=== PATIENT | male | born 1995 | race Caucasian/White ===

== ENCOUNTER 2016-11-09 10:35 | Emergency (ER) | payer OTHER ==
--- NOTE | 2016-11-09 10:57 | EDM.PDOC ---
ED HPI Trauma - General Chief Complaint: Lower Extremity Injury/Pain Stated Complaint: RIGHT ANKLE PAIN Time Seen by Provider: 11/09/16 10:39 Source: Reports: Patient History Limitations: Reports: No limitations - History of Present Illness INITIAL COMMENTS - FREE TEXT/NARRATIVE: History of present illness: [] Patient got stuck in the snow yesterday and jumped out of the bed of his pickup and landed improperly with his right ankle rolling. He took some ibuprofen has been icing it and is concerned that he may have sprained his ankle. He does not want an x-ray of his ankle. Review of systems: As per history of present illness and below otherwise all systems reviewed and negative. Past medical history: As per history of present illness and as reviewed below otherwise noncontributory. Surgical history: As per history of present illness and as reviewed below otherwise noncontributory. Social history: No reported history of drug or alcohol abuse. Family history: As per history of present illness and as reviewed below otherwise noncontributory. Physical exam: General: Well developed, well nourished in NAD HEENT: Atraumatic, normocephalic, pupils reactive, negative for conjunctival pallor or scleral icterus, mucous membranes moist, throat clear, neck supple, nontender, trachea midline. Lungs: Clear to auscultation, breath sounds equal bilaterally, chest nontender. Heart: S1S2, regular, negative for clicks, rubs, or JVD. Abdomen: Soft, nondistended, nontender. Negative for masses or hepatosplenomegaly. Negative for costovertebral tenderness. Pelvis: Stable nontender. Genitourinary: Deferred. Rectal: Deferred. Extremities: Atraumatic, negative for cords or calf pain. Neurovascular unremarkable. Neuro: Awake, alert, oriented. Cranial nerves II through XII unremarkable. Cerebellum unremarkable. Motor and sensory unremarkable throughout. Exam nonfocal. Diagnostics: [] Therapeutics: [] Ibuprofen every 6 hours ice elevation ankle stirrup Impression: [] Right ankle sprain Plan: [] Ice elevate Motrin for pain or ankle stirrup for support return if symptoms worsen followup with with orthopedics Definitive disposition and diagnosis as appropriate pending reevaluation and review of above. Allergies/ADRs: Allergies No Known Allergies Allergy (Verified 11/09/16 10:57) Home Medications: Ambulatory Orders . [No Known Home Meds] 04/21/16 [Confirmed 11/09/16] Past Medical History - Past Health History Medical/Surgical History: Denies Medical/Surgical History - Infectious Disease History Infectious Disease History: Reports: Chicken pox Social & Family History - Family History Family Medical History: Noncontributory - Tobacco Use Smoking Status *Q: Light Tobacco Smoker Years of Tobacco use: 1 Packs/Tins Daily: 0.1 - Caffeine Use Caffeine Use: Reports: Coffee - Recreational Drug Use Recreational Drug Use: No Review of Systems - Review of Systems Review Of Systems: See Below (History of present illness) Trauma Exam - Physical Exam Exam: See Below (The history of present illness) Course - Vital Signs Last Recorded V/S: Last Vital Signs Temp 36.9 C 11/09/16 10:55 Pulse 91 11/09/16 10:55 Resp 18 11/09/16 10:55 BP 145/78 H 11/09/16 10:55 Pulse Ox 96 11/09/16 10:55 - Orders/Labs/Meds Orders: Active Orders 24 hr Category Date Time Status Orthopedic Device Education [RC] Click To Edit Care 11/09/16 11:14 Ordered Ibuprofen [Motrin] Med 11/09/16 11:14 Once 800 mg PO ONETIME ONE Departure - Departure Time of Disposition: 11:16 Disposition: Home, Self-Care 01 Condition: good Clinical Impression: Right ankle sprain Qualifiers: Encounter type: initial encounter Involved ligament of ankle: unspecified ligament Qualified Code(s): S93.401A - Sprain of unspecified ligament of right ankle, initial encounter Referrals: PCP,None [Primary Care Provider] - Forms: ED Department Discharge Additional Instructions: The following information is given to patients seen in the emergency department who are being discharged to home. This information is to outline your options for follow-up care. We provide all patients seen in our emergency department with a follow-up referral. The need for follow-up, as well as the timing and circumstances, are variable depending upon the specifics of your emergency department visit. If you don't have a primary care physician on staff, we will provide you with a referral. We always advise you to contact your personal physician following an emergency department visit to inform them of the circumstance of the visit and for follow-up with them and/or the need for any referrals to a consulting specialist. The emergency department will also refer you to a specialist when appropriate. This referral assures that you have the opportunity for follow-up care with a specialist. All of these measure are taken in an effort to provide you with optimal care, which includes your follow-up. Under all circumstances we always encourage you to contact your private physician who remains a resource for coordinating your care. When calling for follow-up care, please make the office aware that this follow-up is from your recent emergency room visit. If for any reason you are refused follow-up, please contact the [facility] Emergency Department at and asked to speak to the emergency department charge nurse. Motrin for pain, ice as much as possible, elevate, wear ankle stirrup for support followup orthopedics if needed no improvement or worsening symptoms [facility] [address], [address] [place] [address] - My Orders Last 24 Hours: My Active Orders 11/09/16 11:14 Orthopedic Device Education [RC] Click To Edit Ibuprofen [Motrin] 800 mg PO ONETIME ONE - Assessment/Plan Last 24 Hours: My Active Orders 11/09/16 11:14 Orthopedic Device Education [RC] Click To Edit Ibuprofen [Motrin] 800 mg PO ONETIME ONE
[2016-11-09] MEDS ORDERED: Ibuprofen 800 MG Tab PO ONE (11:14)
[2016-11-09 11:35] VITALS: BP 137/74
--- NOTE | 2016-11-09 11:59 | CR ---
EXAMINATION: Right ankle HISTORY: Pain COMPARISON: None TECHNIQUE: 3 views FINDINGS: There is no acute osseous abnormality, dislocation, or fracture identified. Bone mineraliz ation and joint spaces appear normal. Mild soft tissue swelling is noted overlying the lateral malle olus. There is a bone island within the distal tibial diaphysis. IMPRESSION: Soft tissue swelling overlying the lateral malleolus without an acute osseous abnormalit y.
== END 2016-11-09 12:30 | disposition home or self-care (01) ==
LOC: MW.ED 10:35
DX: S93.401A Sprain of unspecified ligament of right ankle, initial encounter (principal); F17.210 Nicotine dependence, cigarettes, uncomplicated; W22.8XXA Striking against or struck by other objects, initial encounter
CPT/HCPCS: 73610; 99283; A9270